=== PATIENT | male | born 1965 | race Caucasian/White ===

== ENCOUNTER 2025-11-16 11:34 | Outpatient (AMB) | payer BC, SELFPAY ==
[2025-11-16 11:41] VITALS: BP 122/66; PULSE 102; TEMP 36.4; O2SAT 99; BMI 22.7
--- NOTE | 2025-11-16 11:41 | MHC.OFFWIV ---
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 Reports his and son had similar illnesses however they were very brief. Denies any shortness of breath, cough, fevers/chills, or GI symptoms. ON LICENSE OF [facility] Social History Patient Tobacco Use Status: Never used Tobacco Review of Systems Const All systems reviewed & are unremarkable except as noted in HPI and below Physical Exam Vital Signs: Last Vital Signs Temp 97.6 F 11/16/25 11:41 Pulse 102 H 11/16/25 11:41 BP 122/66 11/16/25 11:41 Pulse Ox 99 11/16/25 11:41 Oxygen Delivery Method Room Air 11/16/25 11:41 BMI result Body Mass Index 22.7 Const General: cooperative, healthy appearing, comfortable and no acute distress HEENT Head: Yes normal to inspection Ears: hearing grossly normal bilaterally Face and sinus: Yes normal facial exam Mouth: Normal oral and palatal mucosa present Throat: Yes tonsils normal, Yes uvula midline and Yes posterior oropharynx abnormal (mild erythema) Neck Neck: Yes no lymphadenopathy Resp Effort & Inspection: normal respiratory effort Auscultation: clear to auscultation bilaterally Cardio Rate: regular rate Rhythm: regular rhythm Skin General skin exam: no rashes or lesions noted Extrem General: Yes capillary refill normal and Yes no clubbing, cyanosis or edema Psych Appearance: grossly normal Mental Status: mental status grossly normal Speech and movement: Normal speech and movement present Results AMB Rapid Strep AMB Rapid Strep Negative Last Edit by Catie Darling CMA on 11/16/25 11:57 Results Reviewed Results Reviewed: Laboratory Last Values Strep Scn Rapid Clinic Negative 11/16/25 11:51 Assessment & Plan Assessment & Plan (1) Viral upper respiratory illness: Code(s): J06.9 - Acute upper respiratory infection, unspecified Plan: Symptoms consistent with viral upper respiratory illness. Rapid strep was negative. We discussed ongoing conservative measures for symptom management, including rest, hydration, wrxi-ujd-lcrcadd cold/flu medications as needed. Patient declined viral testing swab today. We discussed likely self-limiting nature of illness, however he may return to the clinic if symptoms do not improve with time and conservative treatment modalities or if new symptoms develop. Patient verbalizes understanding and agrees to plan. Orders: Orders AMB Rapid Strep Screen Today Z13.9 - Encounter for screening, unspecified Coding Level of Care Code Est Pt Level 4 (09038) Diagnoses Viral upper respiratory illness J06.9
--- OUTSIDE RECORDS SUMMARY | 2025-11-16 13:18 | XMS_ITS | Data Portability ---
Author Organization [facility], [facility] Address [address] [place] [address] Support Name Relationship Address Phone DARRIUS RAMIREZ self [address] [place] [address] Assessment Encounter Date Assessment Date Assessment LastModified by Organization Details LastModified Time 04/22/2024 04/22/2024 Progressing strength and stability with therapeutic exercises. Continue with remaining scheduled visits and progress to discharge. Not available 04/22/2024 15:12:24 04/27/2024 04/27/2024 Pt has difficulty with balance exercises due to glute/hamstring weakness. Pt needs cues when performing running form due to moving ipsilateral limbs. Pt strength is improving with progressed exercises. Continue progressing balance and dynamic movements for remaining scheduled visits and progress to discharge. [email or web address] Not available 04/27/2024 15:01:42 04/29/2024 04/29/2024 Pt showed good improvements in balance and stability today. Pt was educated on running form and ways to practice at home. Pt has met stated goals and appears ready for discharge. Discharge patient to an independent home program where he can continue with exercises. [email or web address] Not available 04/29/2024 15:01:49 Plan of Treatment Reminders Order Date Submit Date Provider Name Organization Details Last Modified By Last Modified Time Details Appointments None record ed. Lab None record ed. Referral None record ed. Procedures None record ed. Surgeries None record ed. Imaging XR, hand, 3 or more view 025 14:45:3 3 025 Bryanna Jane, [facility] [address], [place], [address], Bryanna PAM Jane 5 15:30:17 XR, hand, 3 or more view 025 14:10:1 3 025 Bryanna Jane CNP [facility] [address], [place], [address], Bryanna Jane CNP 5 15:03:59 MedicationOrders None record ed. VaccineOrders None record ed. Patient TargetsNo targets recorded. Patient Instructions Encounter Date Encounter Id Patient Instructions Last Modified By Organization Details Last Modified Time 05/18/2025 [id number] application of cast, ulnar gutter* Bryanna PAM Jane Not available 05/18/2025 15:03:59 Reason for Referral None Reported. Results Created Date Observation Date Name Description Value Unit Range Abnormal Flag Specimen Type Note LastModifiedBy Organization Detail LastModifiedTime 05/18/2025 05/18/2025 hand 3 view [email or web address]=nbVbXstJU2vGllUDs8f%7HOGaiWmwxf3scfp%2Xg9RXh3 nlWhhA7vJeAHkawFv3XiIGCyRxdSFQ3mHcOHbsj79b9234FA0LtbS%2BAVKOuKiQtrMwF Not Available [facility] , [address] [address] , [place] , [address], , 05/18/2025 14:15:13 05/18/2025 05/18/2025 hand 3 view [email or web address]=hnIlWkbPX0xWrcBZh1t%7YFKdcRiwrb9xhlw%1Xh5KRj5 psTdkM7yPePLuigVw5BwHQKdSecQXG8bTnGXegt16n4250MO1YsnZ%2BAVKOuKiQtrMwF Not Available [facility] , [address] , [place] , [address], , 05/18/2025 14:15:14 07/05/2025 07/05/2025 hand 3 view [email or web address]=zxKtOdpIY9rKupUFg0s%7MSFcfMdzrz3qwtn%7Bj5VXv8 ovLtsE8oYrFWtmeUq1PkWFOpKklMKH0rMyEQruq79g4017BK5Uia5%2BCVqWuKiQtrMwF Not Available [facility] , [address],[facility] [address] , [place] , [address], , 07/05/2025 14:55:00 07/05/2025 07/05/2025 hand 3 view [email or web address]=otTuRolST5dEdgQEa4b%0BOGlgTkweh1cxsb%1Je0OAq0 zrCffF7eDsMEngfIj1MgZBIoDxjEBI9sHwSPnkz88s4252FB5Cmz5%2BCVqWuKiQtrMwF Not Available [facility] , [address] [address] , [place] , [address], , 07/05/2025 14:55:02 Result Notes Documentation Provider Name and Address Organization Details Recorded Time Xr, Hand, 3 Or More View : [email or web address] Encrypted=fdAuYtyQW1rLnkB Uv6g%0LGJmkFkzns1rjzh%2Fg 3HTv3rzXhmL9pNpCSsqqKk4Ww HVAgUcjYOA2gPxDSijy99m267 4DN7WvrT%2BAVKOuKiQtrMwF Not Available [facility] 05/18/2025 14:1 5:13 Xr, Hand, 3 Or More View : [email or web address] Encrypted=qyLtLjwTA3lOjyW Uv6g%6VXVsvHgnit1sqpz%2Fg 8HAp5yyUexR6hMdZBwavKw6Yi MDHjBkkOKX5rZkTFapb32t332 0LS3ChaG%2BAVKOuKiQtrMwF Not Available [facility] 05/18/2025 14:1 5:14 Xr, Hand, 3 Or More View : [email or web address] Encrypted=yfZtMkbJL8gYkrV Uv6g%2YMUhqWzfcv0rkjr%2Fg 9WTq0eoWbsQ5nLzCTiclYf7Mj YCGkPxgIUE1qKdQLjrw38v262 2ZM1Qgn2%2BCVqWuKiQtrMwF Not Available [facility] 07/05/2025 14:5 5:00 Xr, Hand, 3 Or More View : [email or web address] Encrypted=txHeBvmKK6kArtP Uv6g%8DGJjxPxdwt5wtfu%2Fg 8XXq9nrVkzQ6gGdHBcnsLx9Jb KEKwNtoJZI5eJzDLdxv09s788 7NE2Qts9%2BCVqWuKiQtrMwF Not Available [facility] 07/05/2025 14:5 5:02 Problems Name Problem SNOMED Code Status Onset Date Resolution Date Notes Provider Name and Address Organization Details Recorded Time Adhesive capsuliti s of right shoulder 822581979100 109 Active 2016 Problem Code: M75.01; Problem Code Type: ICD-10; Status: 'A'; Not Available [facility] 4 11:12:23 Pain of knee region 7176340865 Active 2023 HANNAH jimenez [facility] 4 10:58:46 Patellofe moral stress syndrome 744044014 Active 2023 HANNAH jimenez [place] [facility] 13:48:37 Problem Notes None recorded. Procedures Surgical History Date Name Laterality Status Provider Name and Address Organization Details Recorded Time 4 10653 Therapeutic Exercise (1:1) completed Louis Cárdenas, PT [address], [place], [address], [facility] 04/29/2024 06:44:37 4 59989 Therapeutic Exercise (1:1) completed Louis Cárdenas, PT [address], [place], [address], [facility] 04/26/2024 14:29:22 4 61877 Therapeutic Exercise (1:1) completed Anam Bhardwaj, AT [address], [place], [address], [facility] 04/22/2024 15:11:04 4 57450 Therapeutic Exercise (1:1) completed Louis Cárdenas, PT [address], [place], [address], [facility] 04/13/2024 06:42:16 4 19758 Therapeutic Exercise (1:1) completed Anam Bhardwaj, AT [address], [place], [address], [facility] 04/08/2024 15:13:21 4 39242 Therapeutic Exercise (1:1) completed Anam Bhardwaj, AT [address], [place], [address], [facility] 04/06/2024 15:23:45 4 68686 Therapeutic Exercise (1:1) completed Louis Cárdenas, PT [address], [place], [address], [facility] 03/31/2024 21:18:14 4 44810 Therapeutic Exercise (1:1) completed Louis Cárdenas, PT [address], [place], [address], [facility] 03/30/2024 07:00:04 4 83471 Therapeutic Exercise (1:1) completed Anam Bhardwaj, AT [address], [place], [address], [facility] 03/25/2024 14:44:27 4 32022 Therapeutic Exercise (1:1) completed Anam Bhardwaj, AT [address], [place], [address], [place] [facility] 03/23/2024 15:11:57 4 89449 Therapeutic Exercise (1:1) completed Louis Cárdenas, PT [address], [place], [address], [place] [facility] 03/19/2024 15:16:23 4 78995 Therapeutic Exercise (1:1) completed Louis Cárdenas, PT [address], [place], [address], [place] [facility] 03/17/2024 15:28:23 4 98449: Low complexity PT Eval completed Louis Cárdenas, PT [address], [place], [address], [place] [facility] 03/17/2024 15:24:06 4 JZKNBELA INJ Harvinder completed Facundo Bond PA-C [address], [place], [address], [place] [facility] 2024 20:37:08 2 Hip Surgery completed HANNAH MALDONADO [facility] 02/11/2024 13:32:32 Imaging Results Imaging Date Name Status LastModifiedBy Organiza tion Detail LastModifiedTime 05/18/2025 hand 3 view completed Not Available [facility] , [address] , [place] , [address], [place] , 05/18/2025 14:15:13 05/18/2025 hand 3 view completed Not Available [facility] , [address] , [place] , [address], [place] , 05/18/2025 14:15:14 07/05/2025 hand 3 view completed Not Available [facility] , [address] , [place] , [address], , 07/05/2025 14:55:00 07/05/2025 hand 3 view completed Not Available [facility] , [address] , [place] , [address], [place] , 07/05/2025 14:55:02 Procedure Notes None recorded. Medical Equipment None Reported. Allergies Allergen ID Allergen Name Allergen Category Reaction Reaction Severity Criticality Documentation Date Start Date Code Code System Note Provider Name and Address Organization Details Recorded Time 78314 Product containin g penicilli n (product) medicatio n Not available Not available Not available 01/19/20242016 81816 8001 SNOMED Not Available [facility] 10:54:28 Medications Name Authored On Sig Start Date Stop Date Status Note Indication Fill Status Repeat Number Dispense Quantity LastModified by Organization Details LastModified Time pseud oeangelique upton fenes in ER 80-70 0 mg table t,ext ended relea se 16:48:04 Perc ocet 5-32 5MG Tabl et thre e time s a day 07/02 aborted Statu s: 'Disc ontin ued'; Not Available Not availab le 0 Not Available Not Available [facility] 01/19/2024 16:48:04 Vitals Date Recorded Body height Body mass index (BMI) Body weight Provider Name and Address Organization Details Last Updated DateTime 05/18/2025 187.96 cm 23.8 kg/m2 88415.59 g DESTINEE MIMS [place] - [facility] 05/18/2025 14:11:40 Date Recorded Body height Body mass index (BMI) Body weight Provider Name and Address Organization Details Last Updated DateTime 07/05/2025 187.96 cm 23.1 kg/m2 74845.63 g ADALGISA ROLAND [place] - [facility] 07/05/2025 14:44:14 Social History Social History Observation Description Date Observed Sex Unknown 07/24/2025 Legal Sex Male Status Not (finding) 11/16/20 25 No social history survey screeners recorded No social history SDOH screeners recorded Functional Status None recorded. Date Assessment Value LastModified by Organizat ion Details LastModified Time 03/17/2024 Lower Extremity Functional Scale 66 Louis Cárdenas, PT [place] - [facility] 03/17/2024 15:20:27 No Functional SDOH screeners recorded Mental Status None recorded. No Mental Screening assessment recorded No Mental SDOH screeners recorded Family History Nothing Reported. Medical History No medical history recorded. Past Encounters Encounter ID Performer Location Encounter Start Date Encounter Closed Date Diagnosis/Indication Diagnosis SNOMED-CT Code Diagnosis ICD10 Code Diagnosis IMO Codes Diagnosis Note [id number] Facundo Bond PA-C [facility] [address] [place] [address] 02/11/2024 13:27:17 02/11/2024 13:53:31 Pain of knee region 2736287861 M25.569 Patellofem oral stress syndrome 383408985 M22.2X9 [id number] Louis Cárdenas, PT [facility] [address] [place] [address] 03/17/2024 14:33:56 03/17/2024 15:50:33 Pain of right knee joint 5402320570 41644 M25.075 [id number] Louis Cárdenas, PT [facility] [address] [place] [address] 03/19/2024 13:23:40 03/19/2024 15:00:23 Pain of right knee joint 9831449740 83931 M25.914 [id number] Anam Bhardwaj, AT [facility] [address] [place] [address] 03/23/2024 13:55:09 03/23/2024 15:00:07 Pain of right knee joint 2968110517 59299 M25.072 [id number] Anam Bhardwaj, AT [facility] [address] [place] [address] 03/25/2024 13:57:06 03/25/2024 14:38:26 Pain of right knee joint 5948018272 36419 M25.492 [id number] Louis Cárdenas, PT [facility] [address] [place] [address] 03/30/2024 13:28:02 03/30/2024 14:00:19 Pain of right knee joint 3705864106 43096 M25.806 [id number] Louis Cárdenas, PT [facility] [address] [place] [address] 04/01/2024 13:27:07 04/01/2024 15:41:58 Pain of right knee joint 1074400704 05408 M25.898 [id number] Anam Benton, AT [facility] [address] [place] [address] 04/06/2024 14:26:44 04/06/2024 15:22:08 Pain of right knee joint 6800602288 82223 M25.507 [id number] Anam Bhardwaj AT [facility] [address] [place] [address] 04/08/2024 14:24:59 04/08/2024 15:01:27 Pain of right knee joint 2477532269 84469 M25.240 [id number] Louis Cárdenas, PT [facility] [address] [place] [address] 04/13/2024 14:28:39 04/13/2024 15:00:06 Pain of right knee joint 8378514855 65174 M25.307 [id number] Anam Bhardwaj, AT [facility] [address] [place] [address] 04/22/2024 13:57:25 04/22/2024 15:07:39 Pain of right knee joint 6251437943 51445 M25.304 [id number] Louis Cárdenas, PT [facility] [address] [place] [address] 04/27/2024 13:58:57 04/27/2024 15:22:56 Pain of right knee joint 6421581437 87219 M25.718 [id number] Louis Cárdenas, PT [facility] [address] [place] [address] 04/29/2024 14:00:32 04/29/2024 14:50:14 Pain of right knee joint 8308358036 85182 M25.534 [id number] Bryanna Jane, PAM LAUR[facility] - [facility] [address] [place] [address] 05/18/2025 13:41:13 06/02/2025 11:41:43 Pain of right hand 1877130377 89285 M79.641 [id number] Bryanna Jane, PAM [facility] - [facility] [address] [place] [address] 07/05/2025 14:37:49 07/12/2025 13:26:53 Closed fracture of fifth metacarpal 319591083 S62.306A [id number] Health Concerns Section Related Observation LastModified by Organization Detai ls LastModified Time None Recorded Concern Status LastModified by Organization Details LastModified Time None Recorded SDOH Concern Status LastModified by Organization Detai ls LastModified Time None Recorded Advance Directives Directive None Recorded Payers Insurance Date Sequence Insurance Name Policy Number Policy Johns Covered Member ID Johns Member ID Guarantor Name 07/12/2025 1 [employer] [id number] 1 Darrius Ramirez [id number] Darrius Ramirez Notes Date Note Type Note Provider Name and Address Organization Details Recorded Time 04/22/2024 text/html Patient presents today reporting 0/10 pain. Anam Bhardwaj, AT [address], [place], [address], [facility] 04/22/2024 15:12:40 04/27/2024 text/html Patient presents today reporting 0/10 pain. Pt states that he has been practicing running and notices medial knee collapse when increasing pace. He states he feels like he is able to go into a deep squat without pain. Louis Cárdenas, PT [address], [place], [address], [facility] 04/27/2024 18:32:27 04/29/2024 text/html Patient presents today reporting 0/10 pain. He reports being able to do a deep squat with minimal pain and no limitation in his daily activities. Overall 75% better. Louis Cárdenas, PT [address], [place], [address], [facility] 04/29/2024 15:28:13 05/18/2025 text/html ROS as noted in the HPI Darrius is a 60-year-old gentleman here today for evaluation of his right upper extremity. He punched a wall was seen at outside facility sustained a 5th metacarpal fracture this was reduced he has been in an ulnar gutter splint he is here today for further evaluation. Bryanna Jane, CAR FERRY CAPTAIN [address], [place], [address], [facility] 05/18/2025 14:48:34 07/05/2025 text/html ROS as noted in the HPI Darrius is a 60-year-old gentleman here today for evaluation of his right upper extremity. He punched a wall was seen at outside facility sustained a 5th metacarpal fracture this was reduced he was treated in an ulnar gutter splint got quite stiff at his last visit he came out of the splint and has been working on range of motion exercises he has made excellent progress. Bryanna Jane, CAR FERRY CAPTAIN [address], [place], [address], [facility] 07/05/2025 15:20:29 Care Team Name Role Member ID Specialty Address Phone None Recorded.
== END 2025-11-16 12:28 | disposition home or self-care (01) ==
PROVIDERS: Visit Provider Nurse Practitioner Family
DX: Z13.9 Encounter for screening, unspecified (principal); J06.9 Acute upper respiratory infection, unspecified

== ENCOUNTER → 2025-11-16 11:34 | Outpatient (BNVA) | payer BC, SELFPAY | PROVIDERS: Visit Provider Nurse Practitioner Family | DX: J06.9 Acute upper respiratory infection, unspecified (principal) | CPT/HCPCS: 87880 ==